=== PATIENT | male | born 1955 | race Caucasian/White ===

== ENCOUNTER → 2018-05-25 08:07 | Outpatient (CLI) | payer OTHER, SELFPAY ==
[2018-05-25 09:31] LABS: Alanine Aminotransferase 48 IU/L (21-72); Aspartate Aminotransferase 33 IU/L (17-59); Cholesterol 206 mg/dL (140-199); HDL Cholesterol 50 mg/dL (40-60); LDL Cholesterol Calculated 133 mg/dL (<100); Triglycerides 114 mg/dL (35-150)
[2018-05-25 09:58] LABS: Prostate Specific Antigen 0.921 ng/mL (0.10-4.00)
== END ==
PROVIDERS: PCP Internal Medicine; Visit Provider Internal Medicine
DX: E78.5 Hyperlipidemia, unspecified (principal); Z12.5 Encounter for screening for malignant neoplasm of prostate
CPT/HCPCS: 36415; 80061; 84153; 84450; 84460

== ENCOUNTER → 2019-06-25 15:41 | Outpatient (CLI) | payer OTHER, SELFPAY ==
--- NOTE | 2019-06-25 15:46 | DI.MRI.S_ITS ---
PROCEDURE: MR SHOULDER LT WO/W CON INDICATIONS: LOCALIZED SWELLING MASS AND LUMP TECHNIQUE: Noncontrast oblique coronal T1 spin echo and T2 fast spin echo with fat saturation, oblique sagittal T1 spin echo and T2 fast spin echo with fat saturation, axial T1 spin echo and T2 fast spin echo with fat saturation through the shoulder. Post-contrast oblique coronal, oblique sagittal, and axial T1 spin echo with fat saturation through the shoulder. COMPARISON: None. FINDINGS: Image quality: Excellent. Rotator cuff: There is tendinosis and moderate grade articular and bursal surface partial-thickness tear involving distal supraspinatus and infraspinatus at their insertion on head extending to musculotendinous junction. Distal subscapularis tendinosis and low-grade intrasubstance partial-thickness tear is also seen. Sagittal images demonsterate no significant muscle atrophy. Bones and bursae: No suspicious bone marrow enhancement. No bone marrow contusions or fractures. Moderate acromioclavicular joint or glenohumeral joint osteoarthritic changes are seen. Small amount of glenohumeral joint and subacromial subdeltoid bursal fluid is seen, no gross intra-articular loose body. Capsule and soft tissues: Surface skin marker is placed over the medial aspect of left upper back soft tissue at the level of acromioclavicular joint. There is no discrete soft tissue mass or fluid collection is seen. No abnormal enhancement is seen in this area. In the absence of intra-articular contrast, there is suggestion of superior labral tear at 12 to 2:00 position. The glenohumeral ligaments appear intact. Tendinosis and low-grade partial-thickness tear involving proximal intra-articular portion of long head biceps tendon is likely present. The rotator interval appears normal, without fibrosis. The coracohumeral ligament is normal in thickness. IMPRESSION: 1. Tendinosis and moderate grade articular and bursal surface partial-thickness tear involving distal supraspinatus and infraspinatus at their insertion on the humeral head extending to musculotendinous junction. Distal subscapularis tendinosis or low intrasubstance partial-thickness tear. No significant rotator cuff muscle atrophy. 2. Moderate acromioclavicular joint and glenohumeral joint osteoarthritis. No suspicious intraosseous lesion or abnormal intraosseous enhancement. 3. Surface skin marker placed over medial aspect of posterior upper back at the level of acromioclavicular joint with no discrete soft tissue mass or fluid collection seen. No area of abnormal enhancement is noted. 4. Suggestion of superior anterior labral tear at 12 to 2:00 position. Tendinosis involving proximal intra-articular portion of long head biceps. Dictated by: Nir Han M.D. on 06/25/2019 at 17:19 Approved by: Nir Han M.D. on 06/25/2019 at 17:25
== END ==
PROVIDERS: Family Provider Physician Assistant; PCP Internal Medicine; Visit Provider Internal Medicine
DX: R22.32 Localized swelling, mass and lump, left upper limb (principal); M25.512 Pain in left shoulder; M75.112 Incomplete rotator cuff tear or rupture of left shoulder, not specified as traumatic; M19.012 Primary osteoarthritis, left shoulder
CPT/HCPCS: 73223; A9579

== ENCOUNTER → 2019-12-28 08:43 | Outpatient (CLI) | payer OTHER, SELFPAY ==
[2019-12-28 10:00] LABS: Alanine Aminotransferase 27 IU/L (<50); Aspartate Aminotransferase 26 IU/L (17-59); Cholesterol 210 mg/dL (140-199); HDL Cholesterol 58 mg/dL (40-60); LDL Cholesterol Calculated 130 mg/dL (<100); Triglycerides 112 mg/dL (35-150)
== END ==
PROVIDERS: Family Provider Physician Assistant; PCP Internal Medicine; Referring Provider Internal Medicine; Visit Provider Internal Medicine
DX: E78.5 Hyperlipidemia, unspecified (principal)
CPT/HCPCS: 36415; 80061; 84450; 84460

== ENCOUNTER → 2023-04-12 11:24 | Outpatient (CLI) | payer MEDICARE, OTHER, SELFPAY ==
--- NOTE | 2023-04-12 | DI.RAD.S_ITS ---
PROCEDURE: XR LUMBAR SPINE 2-3V INDICATIONS: right-sided low back pain with sciatica TECHNIQUE: 3 views of the lumbar spine were acquired. COMPARISON: None. FINDINGS: Bones: 5 [id number] vertebrae are present. There is approximately 1 centimeter anterolisthesis of L4 on L5 which I suspect is secondary to bilateral facet degenerative change. There is moderate diffuse degenerative disc disease noted at all levels. No acute fractures identified. Atherosclerotic vascular calcifications are noted. There is a mild lumbar scoliosis convex left. Soft tissues: Overlying bowel gas pattern is normal. No suspicious soft tissue calcifications. IMPRESSION: 1. 1 centimeter anterolisthesis L4 on L5 which appears to be secondary to bilateral facet degenerative change. 2. Moderate diffuse degenerative disc disease noted at all levels. 3. Atherosclerotic vascular calcifications. 4. Mild lumbar scoliosis convex to the left. Dictated by: Young Izaguirre M.D. on 04/12/2023 at 12:30 Approved by: Young Izaguirre M.D. on 04/12/2023 at 12:32
--- NOTE | 2023-04-12 | DI.US.S_ITS ---
PROCEDURE: US ABD AORTA ANEURYSM SCREEN INDICATIONS: CARDIOVASCULAR DISORDER TECHNIQUE: Real time scanning was performed of the aorta and iliac arteries, with image documentation. COMPARISON: None. FINDINGS: Aorta: Proximal aortic diameter measures 2.2 cm. Mid-aorta measures 1.9 cm. Distal aortic diameter is 1.7 cm. Iliac arteries: Right common iliac artery measures 1.0 cm. Left common iliac artery measures 0.9 cm. IMPRESSION: No ectasia or aneurysmal dilatation of the abdominal aorta or the iliac arteries. Dictated by: Mita Gao M.D. on 04/12/2023 at 13:56 Approved by: Mita Gao M.D. on 04/12/2023 at 14:00
== END ==
PROVIDERS: Family Provider Physician Assistant; PCP Internal Medicine; Referring Provider Internal Medicine; Visit Provider Internal Medicine
DX: Z13.6 Encounter for screening for cardiovascular disorders (principal); M51.16 Intervertebral disc disorders with radiculopathy, lumbar region; M43.16 Spondylolisthesis, lumbar region; M41.9 Scoliosis, unspecified
CPT/HCPCS: 72100; 76706

== ENCOUNTER → 2023-10-24 14:14 | Outpatient (CLI) | payer MEDICARE, OTHER, SELFPAY ==
--- NOTE | 2023-10-24 14:17 | DI.US.S_ITS ---
PROCEDURE: US SOFT TISSUE HEAD AND NECK INDICATIONS: Localized swelling, mass and lump, neck TECHNIQUE: Real-time scanning was performed of the neck region of interest, with image documentation. COMPARISON: [facility], MR, MR SHOULDER LT WO/W CON, 06/25/2019, 15:55. [facility], CR, XR SHOULDER 2+ VIEWS LEFT, 07/29/2019, 15:33. FINDINGS: At the area of clinical concern, there is an area of nonspecific heterogeneous signal measuring approximately 4.1 x 2.0 x 4.0 cm without appreciable internal vascularity. This appears to be located deep to the trapezius muscle. IMPRESSION: Area of heterogeneous abnormal signal is seen corresponding to the palpable area of concern. Differential remains broad and includes benign or malignant soft tissue masses versus muscle strain, inflammatory process, or other nonspecific masslike lesion. Recommend chest wall MRI with and without contrast centered at the area of clinical concern for further characterization. Approved by: Porfirio Mcpherson M.D. on 10/31/2023 at 12:11
== END ==
PROVIDERS: Family Provider Physician Assistant; PCP Internal Medicine; Referring Provider Physician Assistant; Visit Provider Physician Assistant
DX: R22.1 Localized swelling, mass and lump, neck (principal)
CPT/HCPCS: 76536